=== PATIENT | male | born 1980 | race African-American/Black ===

== ENCOUNTER 2022-09-13 15:44 | Outpatient (CLI) | payer OTHER | END 2022-09-13 15:45 | disposition home or self-care (01) | LOC: TBSIIMAG 15:44 | PROVIDERS: ATTEND Family Medicine | DX: S86.911D Strain of unspecified muscle(s) and tendon(s) at lower leg level, right leg, subsequent encounter (principal); S83.241A Other tear of medial meniscus, current injury, right knee, initial encounter; M25.461 Effusion, right knee ==